=== PATIENT | female | born 1945 | race Caucasian/White ===

== ENCOUNTER 2018-10-14 05:38 | Day surgery (SDC) | payer MEDICARE ==
[2018-10-14] MEDS ORDERED: Lactated Ringers 1,000 ML IV SCH (06:30)
[2018-10-14] MEDS ORDERED: DIPRIVAN 200 MG/20 ML IV ONE (07:13)
[2018-10-14 08:16] VITALS: O2SAT 100
[2018-10-14 08:36] VITALS: BP 128/78; PULSE 59
--- NOTE | 2018-10-14 10:06 | OP ---
SURGERY DATE: 10/14/18 SURGERY TIME: 737 PREOPERATIVE DIAGNOSIS: 1. SCREENING EXAM. POSTOPERATIVE DIAGNOSIS: 1. NORMAL COLON. PROCEDURE: 1. Colonoscopy. SURGEON: Dr. Hendrix. ANESTHESIA: MAC. Medications given by the Anesthesia Department. BRIEF HISTORY: The patient is a 72 y/o WF who presents now for colonoscopic evaluation. She was appraised of the risks of the procedure including the risk of perforation, phlebitis, untoward reaction to medication, bleeding, and missed lesions. The patient verbalized her understanding and desired to have the procedure performed. DESCRIPTION OF PROCEDURE: The patient was given the medications by the Anesthesia Department. She had continuous pulse oximetry, ECG monitoring, intermittent BP monitoring, and end tidal CO2 monitoring during the examination. She was placed in the left lateral decubitus position. A digital rectal examination was performed and revealed external hemorrhoids. No masses. The flexible Olympus pediatric colonoscope was used to intubate the rectum. A view of the colon was developed sequentially to the cecum. Upon insertion and withdrawal, including a retroflex view in the rectum, no mucosal lesions were encountered. The scope was removed from the patient who tolerated the procedure well and was sent back to OP recovery in good condition. The prep was noted to be fair to good.
== END 2018-10-14 08:47 | disposition home or self-care (01) ==
LOC: SDC 05:38
PROVIDERS: ATTEND Family Medicine
DX: Z12.11 Encounter for screening for malignant neoplasm of colon (principal)
CPT/HCPCS: 99100; J2704

== ENCOUNTER 2022-04-20 07:08 | Day surgery (SDC) | payer MEDICARE ==
--- NOTE | 2022-04-19 08:37 | HP ---
DATE OF SURGERY: 04/20/2022 HISTORY OF PRESENT ILLNESS: The patient is a 76-year-old female who presents with complaints of persistent nausea and epigastric pain while eating. She is on some Pepcid twice a day. The patient is not really sure what food makes this worse. She is not sure when her last colonoscopy was that she had. PAST MEDICAL HISTORY: Lung cancer, breast cancer, coronary artery disease. PAST SURGICAL HISTORY: Mastectomy. Cataract. ALLERGIES: BACTRIM. PENICILLIN. MEDICATIONS: Tylenol, Klonopin, albuterol, vitamin D3, Pataday Eye Drops, Plavix, Celexa, Pepcid, Zocor, Singulair. FAMILY HISTORY: Cancer unspecified. SOCIAL HISTORY: Negative. REVIEW OF SYSTEMS: CONSTITUTIONAL: Denies fever or chills. CHEST: Denies shortness of breath. CVS: Denies chest pain. ABDOMEN: Denies abdominal pain. PHYSICAL EXAMINATION: GENERAL: No acute distress. CHEST: Nonlabored. No shortness of breath. CVS: Regular rate and rhythm. ABDOMEN: Soft. IMPRESSION: Persistent nausea, vomiting and epigastric pain. PLAN: EGD and gallbladder work up with Dr. Luke Ramon. As dictated by Lori Daly NP.
[2022-04-20] MEDS ORDERED: Lactated Ringers 1,000 ML IV SCH (07:30)
[2022-04-20] MEDS ORDERED: Xylocaine-Mpf 2% 5 Ml Vial ONE (09:30)
[2022-04-20] MEDS ORDERED: Versed 2 MG/2 ML Injection ONE (09:30)
[2022-04-20] MEDS ORDERED: DIPRIVAN 200 MG/20 ML IV ONE (09:30)
[2022-04-20 11:01] VITALS: O2SAT 96
[2022-04-20 11:04] VITALS: BP 134/74; PULSE 68
--- NOTE | 2022-04-20 14:29 | OP ---
SURGERY DATE/TIME: 04/20/2022 PREOPERATIVE DIAGNOSIS: Nausea, vomiting, difficult swallowing, epigastric pain. POSTOPERATIVE DIAGNOSIS: Grade 2 gastroesophageal reflux disease, Presbyesophagus, post-inflammatory polyps (PIP) stomach polyps. PROCEDURE: EGD. SURGEON: Luke Ramon M.D. ANESTHESIA: MAC. COMPLICATIONS: None. CONDITION: Stable. INDICATION: The patient presents with the above symptoms. DESCRIPTION OF PROCEDURE: Taken to endoscopy. MAC sedation provided. Scope introduced. Pharyngoesophageal junction satisfactory. Esophagus satisfactory. Down to gastroesophageal junction there was a rim grade 2 over 4. There was no hiatal hernia. Fundus, body and antrum normal. Pylorus normal. Duodenal bulb normal. Second portion normal. Scope withdrawn looped upon itself. In the stomach, there was some mild PIP polyps but nothing interesting. Scope withdrawn. The patient tolerated the procedure satisfactorily. Findings discussed with the caregiver in the waiting room.
== END 2022-04-20 10:50 | disposition home or self-care (01) ==
LOC: SDC 07:08
PROVIDERS: ATTEND Surgery
DX: K21.9 Gastro-esophageal reflux disease without esophagitis (principal); R11.2 Nausea with vomiting, unspecified; R13.10 Dysphagia, unspecified; R10.13 Epigastric pain; Z85.3 Personal history of malignant neoplasm of breast; Z85.118 Personal history of other malignant neoplasm of bronchus and lung; K22.89 Other specified disease of esophagus; K31.7 Polyp of stomach and duodenum
CPT/HCPCS: 93005; 99100; J2250; J2704

== ENCOUNTER 2023-02-22 08:32 | Day surgery (SDC) | payer MEDICARE ==
--- NOTE | 2023-02-15 15:57 | HP ---
DATE OF SURGERY: 02/22/2023 HISTORY OF PRESENT ILLNESS: The patient is a 77-year-old female presented with guardian in the office. She has mental handicap. She lives in an apartment. She said that she has no complaints from her colon. There is no blood in the stool. She is not sure if she ever had a colonoscopy. She does take Plavix for transient ischemic attack. She is receiving treatment right now for lung cancer. It did show on recent PET scan that she had an abnormal uptake in her thyroid, nodule on the left side, abnormal sigmoid thickening with uptake, suprasternal notch nodule in or adjacent to the lower pole of the left lobe of the thyroid gland. The patient also has a history of breast cancer. We will schedule her for colonoscopy on a different day and we would like to do a left neck exploration for this left thyroid mass nodule. PAST MEDICAL HISTORY: Lung cancer, breast cancer, mentally handicapped, transient ischemic attack, hypertension, hyperlipidemia. PAST SURGICAL HISTORY: Mastectomy. Cataract. Port-A-Cath. ALLERGIES: BACTRIM. PENICILLIN. ORANGE. STRAWBERRY. TOMATO. MEDICATIONS: Singulair, Zocor, Pepcid, Celexa, Plavix, Pataday Eye Drops, vitamin B3, albuterol, Klonopin, Tylenol. FAMILY HISTORY: Cancer unspecified. SOCIAL HISTORY: Negative. REVIEW OF SYSTEMS: CONSTITUTIONAL: Denies fever or chills. CHEST: Denies shortness of breath. CVS: Denies chest pain. ABDOMEN: Denies abdominal pain. PHYSICAL EXAMINATION: GENERAL: No acute distress. CHEST: Nonlabored. No shortness of breath. CVS: Regular rate and rhythm. ABDOMEN: Soft. IMPRESSION: A patient with current lung cancer, history of breast cancer presenting with an abnormal PET scan with uptake in left thyroid nodule and abnormal sigmoid thickening with uptake. PLAN: Left neck exploration for left thyroid mass nodule with NIMS monitor with Dr. Luke Ramon. We have also scheduled the patient to have a colonoscopy on a different day. As dictated by Lori Daly NP.
[~2023-02-22 08:32] MED LIST: Lactated Ringers 1,000 ML IV ONE; Sensorcaine 0.25% 10 ML ONE
[2023-02-22] MEDS ORDERED: Lactated Ringers 1,000 ML IV ONE (08:48)
[2023-02-22 08:49] VITALS: BP 119/70; PULSE 61; RESP 18; TEMP 98.5; O2SAT 95
[2023-02-22] MEDS ORDERED: Lactated Ringers 1,000 ML IV SCH (09:00)
[2023-02-22] MEDS: CLINDAMYCIN-D5W 900 MG/50 ML*** 900 MG/50 ML BAG IV SCH ×2 (09:13→09:14)
== END 2023-02-22 10:54 | disposition home or self-care (01) ==
LOC: SDC 08:32
PROVIDERS: ATTEND Surgery
DX: Z53.8 Procedure and treatment not carried out for other reasons (principal)

== ENCOUNTER 2023-03-08 06:41 | Day surgery (SDC) | payer MEDICARE ==
--- NOTE | 2023-03-01 15:26 | HP ---
DATE OF SURGERY: 03/08/2023 HISTORY OF PRESENT ILLNESS: The patient is a 77-year-old female that is under the care of a guardian for being mentally handicapped. She lives in an apartment. She has no bowel complaints. She sees no blood in her stool. Not sure when the last colonoscopy was. She does take Plavix for transient ischemic attack. The guardian is actually unsure if the patient ever had a colon examination. She is currently receiving treatment for lung cancer. It looks like she had a PET scan recently with abnormal uptake and sigmoid thickening on the PET scan. The patient has also had a history of breast cancer. I believe that the patient also did a recent neck exploration for a thyroid nodule with uptake. PAST MEDICAL HISTORY: Breast cancer. Lung cancer. Transient ischemic attack. Stroke. PAST SURGICAL HISTORY: Mastectomy. Cataract. Port placement. ALLERGIES: BACTRIM. PENICILLIN (HIVES). ORANGE. STRAWBERRY. TOMATO. MEDICATIONS: Tylenol, Klonopin, albuterol, vitamin D, Pataday Eye Drops, Plavix, Celexa, Pepcid, Zocor, Singulair. FAMILY HISTORY: Cancer unspecified. SOCIAL HISTORY: None. REVIEW OF SYSTEMS: CONSTITUTIONAL: Denies fever or chills. CHEST: Denies shortness of breath. CVS: Denies chest pain. ABDOMEN: Denies abdominal pain. PHYSICAL EXAMINATION: GENERAL: No acute distress. CHEST: Nonlabored. No shortness of breath. CVS: Regular rate and rhythm. ABDOMEN: Soft. IMPRESSION: Abnormal PET scan with sigmoid thickening and uptake, history of breast cancer, lung cancer. PLAN: Colonoscopy with Dr. Luke Ramon. As dictated by Lori Daly NP.
[2023-03-08 07:18] VITALS: RESP 16
[2023-03-08] MEDS ORDERED: Lactated Ringers 1,000 ML IV ONE (07:27)
[2023-03-08] MEDS: Lactated Ringers 1,000 ML IV SCH (07:40)
[2023-03-08] MEDS ORDERED: DIPRIVAN 200 MG/20 ML IV ONE (08:57)
[2023-03-08] MEDS ORDERED: GlucaGen 1 MG ONE (09:04)
[2023-03-08 09:20] VITALS: TEMP 98.4
[2023-03-08 09:30] VITALS: O2SAT 99
--- NOTE | 2023-03-08 09:30 | OP ---
SURGERY DATE/TIME: 03/08/2023 0900 PREOPERATIVE DIAGNOSIS: PET scan lighting up in the sigmoid colon with history of lung cancer recent treatment. POSTOPERATIVE DIAGNOSES: Normal colonoscopy to cecum specifically the sigmoid was totally normal. PROCEDURE: Colonoscopy complete to cecum. SURGEON: Luke Ramon M.D. ANESTHESIA: MAC. COMPLICATIONS: None. CONDITION: Stable. INDICATION: A patient with a PET scan lighting up in the sigmoid and requiring endoscopic examination. She has not had recent endoscopic examination. DESCRIPTION OF PROCEDURE: She is taken to endoscopy. Left lateral decubitus position. Anal digital examination satisfactory. Scope introduced. There was a little spasm. Glucagon was given. The scope was advanced to the cecum. Base of the cecum, ileocecal valve, appendiceal orifice normal. Ascending, hepatic, transverse, splenic, descending. The sigmoid we went there four times two up and two back and there was no lesion. It was totally normal. Rectum normal. Anus normal. IMPRESSION: Normal examination.
[2023-03-08 09:37] VITALS: BP 119/55; PULSE 69
== END 2023-03-08 09:46 | disposition home or self-care (01) ==
LOC: SDC 06:41
PROVIDERS: ATTEND Surgery
DX: R93.3 Abnormal findings on diagnostic imaging of other parts of digestive tract (principal); Z85.3 Personal history of malignant neoplasm of breast; Z85.118 Personal history of other malignant neoplasm of bronchus and lung
CPT/HCPCS: 99100; J1610; J2704